=== PATIENT | female | born 1985 | race Caucasian/White ===

== ENCOUNTER 2022-02-22 20:29 | Observation (INO) ==
[2022-02-23 00:50] LABS: Basophils # 0.1 10*3/uL (0.0-0.2); Basophils % 0.5 % (0.0-0.8); Eosinophils # 0.5 10*3/uL (0.0-0.87); Eosinophils % 4.5 % (0.00-10.9); Hematocrit 39.9 VOL% (35.7-47.0); Hemoglobin 12.7 GM/DL (12.0-16.0); Immature Granulocytes % 0.3 %; Immature Granulocytes Absolute 0.03 #; Lymphocytes # 3.1 10*3/uL (1.4-4.0); Lymphocytes % 28.5 % (21.3-54.2); Mean Corpuscular HGB Conc 31.8 GM/DL (32-36); Mean Corpuscular Volume 80.3 FL (87-102); Mean Platelet Volume 9.1 FL (9.6-12.0); Monocytes % 8.9 % (1.7-12.7); Neutrophils % 57.3 % (38.7-73.9); Platelet Count 405 T/CUMM (130-400); Red Blood Count 4.97 MC/CUMM (3.8-5.5); Red Cell Distribution Width 15.7 % (9.3-17.3); White Blood Count 10.8 T/CUMM (4-12)
[2022-02-23] MEDS ORDERED: KETOROLAC 30 MG/1 ML VIAL IV STA (01:05)
[2022-02-23 01:11] LABS: Alanine Aminotransferase 18 U/L (13-56); Alkaline Phosphatase 91 U/L (45-117); Aspartate Amino Transferase 17 U/L (0-37); Bilirubin,Total < 0.39 MG/DL (0.20-1.00); Blood Urea Nitrogen 9 MG/DL (7-18); Calcium 9.6 MG/DL (8.5-10.1); Carbon Dioxide 23 MMOL/L (21-32); Chloride 110 MMOL/L (98-107); Glucose 84 MG/DL (74-106); Osmolality,Calculated 274.5 MOS/KG (273-304); Potassium 4.4 MMOL/L (3.5-5.1); Sodium 139 MMOL/L (136-145); Total Protein 7.3 G/DL (6.4-8.2)
[2022-02-23] MEDS ORDERED: ONDANSETRON 4 MG/2 ML VIAL IV PRN ×2 (02:02→12:53)
[2022-02-23] MEDS ORDERED: MORPHINE 2 MG/1 ML SYRINGE IV PRN (02:02)
[2022-02-23] MEDS: DEXTROSE 5% NACL 0.45% 1,000 ML IV SCH ×3 (02:45→20:06)
[2022-02-23 03:47] LABS: Bacteria,Urine Occasional /HPF (Few); Mucus,Urine Few /LPF (Occasional); RBC,Urine 190 /HPF (0-4); Squamous Epithelial Cell,Urine Occasional /HPF (0-10)
[2022-02-23 03:53] LABS: Bilirubin,Urine Small mg/dL (Negative); Blood, Urine Moderate mg/dL (Negative); Glucose,Urine (UA) Negative (Negative); Ketones,Urine 80 mg/dL (Negative); Nitrite,Urine Negative (Negative); Protein,Urine Negative (Negative); Urine Appearance Clear (Clear); Urine Color Yellow (Yellow); Urine Specific Gravity > 1.030 (1.001-1.035); Urine Urobilinogen 0.2 eU/dL (<2.0)
[2022-02-23] MEDS ORDERED: INDOCYANINE GREEN 25 MG VIAL IV ONE (06:51)
[2022-02-23] MEDS: PANTOPRAZOLE 40 MG VIAL IV SCH (08:08)
[2022-02-23] MEDS ORDERED: fentaNYL 100 MCG/2 ML VIAL ONE ×2 (10:45→11:52)
[2022-02-23] MEDS ORDERED: MIDAZOLAM 2 MG/2 ML VIAL ONE (10:45)
[2022-02-23] MEDS ORDERED: SUCCINYLCHOLINE 200 MG/10 ML VIAL ONE (10:45)
[2022-02-23] MEDS ORDERED: propofoL 200 MG/20 ML VIAL IV ONE (10:45)
[2022-02-23] MEDS ORDERED: ACETAMINOPHEN INJ 1,000 MG/100 ML VIAL IV ONE (10:45)
[2022-02-23] MEDS ORDERED: DEXAMETHASONE 4 MG/1 ML VIAL ONE (10:45)
[2022-02-23] MEDS ORDERED: ONDANSETRON 4 MG/2 ML VIAL ONE (10:45)
[2022-02-23] MEDS ORDERED: ROCURONIUM 50 MG/5 ML VIAL IV ONE (10:45)
[2022-02-23] MEDS ORDERED: LIDOCAINE 2% 5 ML VIAL ONE (10:45)
[2022-02-23] MEDS ORDERED: KETOROLAC 15 MG/1 ML VIAL IV PRN (10:48)
[2022-02-23] MEDS ORDERED: KETOROLAC 10 MG TABLET PO PRN (10:48)
[2022-02-23] MEDS ORDERED: LIDOCAINE 1%/EPI INJ 20 ML VIAL ONE (10:49)
[2022-02-23] MEDS ORDERED: BUPIVACAINE MPF 0.25% 10 ML VIAL ONE (10:49)
[2022-02-23] MEDS ORDERED: TISSUE ADHESIVE 1 EACH APPLICATOR TOP ONE (10:49)
[2022-02-23] MEDS ORDERED: PHENYLEPHRINE 1 MG/10 ML SYRINGE IV ONE (11:37)
[2022-02-23] MEDS ORDERED: MEPERIDINE 25 MG/1 ML VIAL ONE (12:42)
[2022-02-23] MEDS: MEPERIDINE 25 MG/1 ML VIAL IV PRN ×2 (12:45→13:00)
[2022-02-23] MEDS ORDERED: HYDROmorphone 1 MG/1 ML SYRINGE IV PRN (12:53)
[2022-02-23] MEDS ORDERED: diphenhydrAMINE 50 MG/1 ML VIAL IV PRN (12:53)
[2022-02-23] MEDS ORDERED: PROMETHAZINE INJ 25 MG in SODIUM CHLORIDE 0.9% 50 ML IV PRN (12:53)
[2022-02-23] MEDS ORDERED: KETOROLAC 30 MG/1 ML VIAL ONE (12:56)
[2022-02-23] MEDS ORDERED: PROMETHAZINE 25 MG/1 ML VIAL ONE (12:56)
[2022-02-23] MEDS ORDERED: KETOROLAC 15 MG/1 ML VIAL IV ONE (15:46)
[2022-02-23] MEDS ORDERED: PHENOL 1.4% THROAT SPRAY 177 ML BOTTLE PO PRN (16:11)
[2022-02-24] MEDS: DEXTROSE 5% NACL 0.45% 1,000 ML IV SCH (02:46)
[2022-02-24 07:17] VITALS: BP 92/45
[2022-02-24] MEDS: PANTOPRAZOLE 40 MG VIAL IV SCH (08:12)
== END 2022-02-24 11:27 | disposition home or self-care (01) ==
LOC: N.3E 20:29 → N.ED 20:29 → N.3E 02-23 04:58
PROVIDERS: ADMIT Surgery; ATTEND Surgery